=== PATIENT | female | born 1965 | race Caucasian/White ===

== ENCOUNTER 2016-04-21 11:28 | Emergency (ER) | payer MEDICAID ==
[~2016-04-21] VITALS: Ht 170.2 cm; Wt 59.9 kg
--- NOTE | 2016-04-21 11:45 | NUR ---
Triaged, no beds available. Patient agrees to wait in waiting rm.
[2016-04-21 12:00] VITALS: BP 110/65; PULSE 72; RESP 16; TEMP 97.7; O2SAT 99
--- NOTE | 2016-04-21 12:45 | NUR ---
Patient seen in triage rm by Dr. Holly.
--- NOTE | 2016-04-21 13:45 | NUR ---
Note undone in EDM - 04/21/16 at 1940 by MARCELLA Patient given written and verbal discharge instructions and verbalizes understanding. ER MD discussed with patient the results and treatment provided. Given copies of tests performed in ER. Patient in stable condition. ID arm band removed. Rx of ibuprofen given. Patient educated on pain management and to follow up with PMD. Pain Scale 2/10. Opportunity for questions provided and answered.
--- NOTE | 2016-04-21 13:52 | NUR ---
Patient given written and verbal discharge instructions and verbalizes understanding. ER MD discussed with patient the results and treatment provided. Given copies of tests performed in ER. Patient in stable condition. ID arm band removed. Rx of Ibuprofen given. Patient educated on pain management and to follow up with PMD. Pain Scale 2/10. Opportunity for questions provided and answered.
== END 2016-04-21 13:52 | disposition home or self-care (01) ==
LOC: SED 11:28
DX: S93.492A Sprain of other ligament of left ankle, initial encounter (principal); X50.1XXA Overexertion from prolonged static or awkward postures, initial encounter; Y93.89 Activity, other specified; Y92.89 Other specified places as the place of occurrence of the external cause; Y99.8 Other external cause status
CPT/HCPCS: 99284

== ENCOUNTER 2018-01-29 22:43 | Emergency (ER) | payer MEDICAID ==
[~2018-01-29] VITALS: Ht 167.6 cm; Wt 61.2 kg
[2018-01-29 22:48] VITALS: BP_SYST 127
[2018-01-29 23:50] VITALS: BP_SYST 127
== END 2018-01-29 23:51 | disposition home or self-care (01) ==
LOC: SED 22:43
DX: L53.8 Other specified erythematous conditions (principal); M79.662 Pain in left lower leg; R03.0 Elevated blood-pressure reading, without diagnosis of hypertension
CPT/HCPCS: 99282

== ENCOUNTER 2022-11-09 14:23 | Emergency (ER) | payer MEDICAID, OTHER ==
[~2022-11-09] VITALS: Ht 170.2 cm; Wt 57.2 kg
[2022-11-09 14:28] VITALS: BP_SYST 127; PULSE 103; RESP 18; TEMP 98.3; O2SAT 98
[2022-11-09] MEDS ORDERED: ZAN4 PO (17:21)
[2022-11-09] MEDS ORDERED: NABU-140 PO (17:21)
[2022-11-09 18:10] VITALS: BP_SYST 127; PULSE 103; RESP 18; TEMP 98.3; O2SAT 98
== END 2022-11-09 18:10 | disposition home or self-care (01) ==
LOC: SED 14:23
DX: M79.10 Myalgia, unspecified site (principal); R10.32 Left lower quadrant pain; M25.562 Pain in left knee; Z79.899 Other long term (current) drug therapy
CPT/HCPCS: 73552; 99283

== ENCOUNTER 2023-03-20 15:20 | Emergency (ER) | payer OTHER ==
[~2023-03-20] VITALS: Ht 167.6 cm; Wt 59.0 kg
[2023-03-20 15:20] VITALS: BP_SYST 140; PULSE 81; RESP 17; TEMP 97; O2SAT 98
[~2023-03-20 15:20] MED LIST: NABU-140 PO; ZAN4 PO
[2023-03-20] MEDS: IBUPROFEN 600 MG TABLET PO ONE (16:11)
[2023-03-20] MEDS ORDERED: DICL20GE TP (16:58)
[2023-03-20] MEDS ORDERED: IBUP-1969 PO (16:58)
== END 2023-03-20 17:10 | disposition home or self-care (01) ==
LOC: SED 15:20
DX: S93.402A Sprain of unspecified ligament of left ankle, initial encounter (principal); Z79.899 Other long term (current) drug therapy; X50.1XXA Overexertion from prolonged static or awkward postures, initial encounter; Y93.89 Activity, other specified; Y92.89 Other specified places as the place of occurrence of the external cause; Y99.8 Other external cause status
CPT/HCPCS: 99284